=== PATIENT | female | born 1945 | race Caucasian/White ===

== ENCOUNTER 2018-12-15 06:14 | Emergency (ER) | payer MEDICARE, OTHER ==
[2018-12-15] MEDS: SOD CHLORIDE 0.9% 500 ML IV (06:43)
[2018-12-15] MEDS: IBUPROFEN 800 MG TAB PO (06:45)
[2018-12-15] MEDS: CYCLOBENZAPRINE 10 MG TAB PO (06:45)
[2018-12-15] MEDS: HYDROmorphONE 1 MG/ML SYG IV (06:45)
[2018-12-15] MEDS: ONDANSETRON 4 MG INJ IV (06:45)
== END 2018-12-15 09:20 | disposition home or self-care (01) ==
LOC: E/R 06:14
DX: M25.561 Pain in right knee (principal); M62.831 Muscle spasm of calf; I10 Essential (primary) hypertension
CPT/HCPCS: 73562; 96374; 96375; 99284-25

== ENCOUNTER 2019-01-11 21:16 | Emergency (ER) | payer MEDICARE, OTHER ==
[2019-01-11] MEDS: LORAZEPAM 2 MG INJ IM (22:55)
[2019-01-11] MEDS: IBUPROFEN 800 MG TAB PO (22:56)
[2019-01-11] MEDS: CYCLOBENZAPRINE 10 MG TAB PO (22:57)
[2019-01-12] MEDS ORDERED: morphine 4 MG/ML VIAL IV (00:15)
[2019-01-12] MEDS ORDERED: ONDANSETRON 4 MG INJ IV (00:15)
[2019-01-12] MEDS: ONDANSETRON (ODT) 4 MG TAB ODT (00:44)
[2019-01-12] MEDS: morphine 4 MG/ML VIAL IM ×2 (00:45→01:53)
== END 2019-01-12 02:31 | disposition home or self-care (01) ==
LOC: FTE 01-12 02:31
DX: M62.838 Other muscle spasm (principal); M17.11 Unilateral primary osteoarthritis, right knee; I10 Essential (primary) hypertension; E11.9 Type 2 diabetes mellitus without complications; Z79.84 Long term (current) use of oral hypoglycemic drugs
CPT/HCPCS: 73562; 96372; 99284-25

== ENCOUNTER → 2019-01-15 | Outpatient (CLI) | payer MEDICARE, OTHER | END | disposition home or self-care (01) | LOC: C/S 09:55 | DX: M54.5 Low back pain (principal); M54.16 Radiculopathy, lumbar region | CPT/HCPCS: 72131 ==

== ENCOUNTER 2019-01-17 18:50 | Emergency (ER) | payer MEDICARE, OTHER ==
[2019-01-17] MEDS: DIAZEPAM 5 MG TAB PO (21:48)
[2019-01-17] MEDS: ONDANSETRON 4 MG INJ IV (21:48)
[2019-01-17] MEDS: SOD CHLORIDE 0.9% 1,000 ML IV (21:49)
[2019-01-17] MEDS: HYDROmorphONE 1 MG/ML SYG IV (21:49)
== END 2019-01-17 21:10 | disposition home or self-care (01) ==
LOC: E/R 18:50
DX: M62.838 Other muscle spasm (principal); I10 Essential (primary) hypertension
CPT/HCPCS: 96374; 96375; 99284-25

== ENCOUNTER → 2019-01-17 | Emergency (ER) | payer MEDICARE, OTHER ==
[2019-01-17] MEDS: KETOROLAC 15 MG INJ IV (17:12)
[2019-01-17] MEDS: HYDROmorphONE 1 MG/ML SYG IV (17:12)
[2019-01-17] MEDS: SOD CHLORIDE 0.9% 1,000 ML IV (17:12)
[2019-01-17] MEDS: ONDANSETRON 4 MG INJ IV (17:12)
== END | disposition home or self-care (01) ==
LOC: FTE 14:50
DX: M62.838 Other muscle spasm (principal); I10 Essential (primary) hypertension
CPT/HCPCS: 96374; 96375; 99284-25

== ENCOUNTER → 2019-01-20 | Emergency (ER) | payer MEDICARE, OTHER ==
[2019-01-20] MEDS: HYDROmorphONE 2 MG/ML SYG IM (14:25)
[2019-01-20] MEDS: DIAZEPAM 5 MG TAB PO (14:26)
[2019-01-20] MEDS: HYDROCODONE/APAP (10/325) TAB PO (15:34)
== END | disposition home or self-care (01) ==
LOC: FTE 13:19
DX: M79.661 Pain in right lower leg (principal); I10 Essential (primary) hypertension; E11.9 Type 2 diabetes mellitus without complications
CPT/HCPCS: 96372; 99284-25